=== PATIENT | male | born 1970 | race Hispanic/Latino ===

== ENCOUNTER 2017-02-04 21:48 | Emergency (ER) | payer SELFPAY ==
[2017-02-04] MEDS ORDERED: Ibuprofen 800 MG TAB ONE (22:14)
[2017-02-04] MEDS ORDERED: cefTRIAXone\\ROCEPHIN 1 GM VIAL ONE (22:14)
[2017-02-04] MEDS ORDERED: Lidocaine 1% 20 ML MDV ONE (22:14)
== END 2017-02-04 22:50 | disposition home or self-care (01) ==
LOC: NAV ERS 21:48
DX: J01.90 Acute sinusitis, unspecified (principal); Z79.899 Other long term (current) drug therapy
CPT/HCPCS: 96372; J0696; J2001

== ENCOUNTER 2018-10-24 20:32 | Emergency (ER) | payer SELFPAY ==
[2018-10-24] MEDS ORDERED: Lidocaine 4% Topical Sol 50 ML BOT ONE (20:51)
[2018-10-24] MEDS ORDERED: Benzocaine 20% Spray 60 ML CAN ONE (20:53)
== END 2018-10-24 21:25 | disposition home or self-care (01) ==
LOC: NAV ERS 20:32
DX: K04.7 Periapical abscess without sinus (principal); K02.9 Dental caries, unspecified
CPT/HCPCS: 41800; 87070; 87205